=== PATIENT | male | born 1965 | race Caucasian/White ===

== ENCOUNTER → 2017-06-01 07:52 | Outpatient (CLI) | payer BC, SELFPAY ==
--- NOTE | 2017-06-01 08:01 | US_ITS ---
ULTRASOUND ABDOMEN LIMITED: HISTORY: Right upper quadrant pain ITS.REASON: RUQ PAIN ORDERING PHYSICIAN: Jonn Torres MD PATIENT AGE: 52 years COMPARISON: None FINDINGS: PANCREAS: Unremarkable. No obvious mass or abnormal fluid collection. No ductal dilatation LIVER: No focal liver lesions demonstrated. Homogeneous echogenicity. No intrahepatic biliary ductal dilatation evident RIGHT KIDNEY: Unremarkable. Normal size and echogenicity. No hydronephrosis GALLBLADDER: No gallstones, gallbladder wall thickening, pericholecystic fluid, or biliary dilatation. IMPRESSION: Negative gallbladder/right upper quadrant ultrasound
== END ==
PROVIDERS: PCP Emergency Medicine; Visit Provider Emergency Medicine
DX: R10.11 Right upper quadrant pain (principal)
CPT/HCPCS: 76705

== ENCOUNTER → 2017-07-16 08:42 | Outpatient (POV) | payer BC, SELFPAY ==
[2017-07-16 10:08] LABS: Basophils % 0.3 % (0.1-2.0); Eosinophils # 0.1 K/mm3 (0.0-0.4); Eosinophils % 0.9 % (0.1-12.0); Hemoglobin 14.6 g/dL (14.1-18.0); Lymphocytes # 3.4 K/mm3 (0.7-4.5); Lymphocytes % 40.8 K/mm3 (10-50); Mean Corpuscular Hemoglobin 29.1 pg (27.0-31.2); Mean Corpuscular Volume 85.8 fl (80-94); Mean Platelet Volume 7.9 fl (7.4-10.4); Monocytes # 0.6 K/mm3 (0.1-1.0); Monocytes % 7.1 % (1.7-9.3); Neutrophils # 4.2 K/mm3 (1.8-7.8); Neutrophils % 50.9 % (37.0-80.0); Platelet Count 257 K/mm3 (142-424); Red Blood Count 5.01 M/mm3 (4.60-6.20); Red Cell Distribution Width 12.8 % (11.5-17.5); White Blood Count 8.3 K/mm3 (4.8-10.8)
[2017-07-16 11:00] LABS: Anion Gap 10.3 mEq/L (5-15); Blood Urea Nitrogen 16 mg/dL (7-18); Carbon Dioxide 28 mmol/L (21.0-32.0); Chloride 105 mmol/L (98-107); Creatinine,Serum 0.95 mg/dL (0.70-1.30); Potassium 4.3 mmoL/L (3.5-5.1); Sodium 139 mmol/L (136-145)
[2017-07-16 11:01] LABS: Alanine Aminotransferase 56 U/L (12-78); Albumin Level 3.9 gm/dL (3.4-5.0); Albumin/Globulin Ratio 1.2 (1.1-1.8); Alkaline Phosphatase 74 U/L (46-116); Amylase 51 U/L (25-125); Aspartate Amino Transferase 40 U/L (15-37); Bilirubin,Total 0.5 mg/dL (0.2-1.0); Calcium 8.5 mg/dL (8.5-10.1); Estimated Glomerular Filt Rate 83 ml/min (>60); GFR (African American) 100 ML/MIN (>60); Globulin 3.3 gm/dl (1.3-3.2); Glucose 97 mg/dL (74-106); Lipase 186 u/L (73-393); Total Protein,Serum 7.2 gm/dL (6.4-8.2)
== END ==
PROVIDERS: PCP Emergency Medicine; Visit Provider Nurse Practitioner Acute Care
DX: R10.13 Epigastric pain (principal)
CPT/HCPCS: 36415; 80053; 82150; 83690; 85025

== ENCOUNTER → 2017-07-26 08:29 | Outpatient (CLI) | payer BC, SELFPAY ==
[2017-07-26 09:26] LABS: INR 0.96 (0.9-1.1); Prothrombin Time 10.4 seconds (9.4-11.8)
[2017-07-26 09:44] LABS: Hemoglobin A1C 5.5 % (0.0-7.0)
[2017-07-26 09:49] LABS: Chol/HDL Ratio 4.2 (1-3.5); Cholesterol 178 mg/dL (140-200); Ferritin 268 ng/mL (8-388); HDL Cholesterol 42 mg/dL (27-67); LDL Cholesterol 106 mg/dL (0-130); Triglycerides 149 mg/dL (30-200); VLDL Cholesterol 30 mg/dL (0-40)
[2017-07-27 09:17] LABS: Iron 91 ug/dL (38-169); UIBC 197 ug/dL (111-343)
[2017-07-27 10:14] LABS: Hep A Ab, IgM Negative (Negative); Hep B Core Ab, Total Negative (Negative); Hepatitis B Core Antibody IgM Negative (Negative); Hepatitis B Surface Antigen Negative (Negative)
[2017-07-27 11:40] LABS: Hep A Ab, Total Negative (Negative); Hep B Surface Ab, Qual Non Reactive (.); Hepatitis C Antibody 0.1 s/co ratio (0.0-0.9); Iron Saturation 32 % (15-55)
[2017-07-27 17:45] LABS: Actin (Smooth Muscle) Antibody 18 Units (0-19); Angiotensin Converting Enzyme 42 U/L (14-82); Deamidated Gliadin Abs, IgA 2 units (0-19); Deamidated Gliadin Abs, IgG 2 units (0-19); Endomysial IgA Antibody Negative (Negative); Liver-Kidney Microsomal Ab <1.0 Units (0.0-20.0); Mitochondrial (M2) Antibody <20.0 Units (0.0-20.0); Tissue Transglutaminase IgA Ab <2 U/mL (0-3); Tissue Transglutaminase IgG Ab <2 U/mL (0-5)
[2017-07-27 18:10] LABS: Alpha-1-Antitrypsin 124 mg/dL (90-200); Immunoglobulin A, Qn 223 mg/dL (90-386); Immunoglobulin G, Qn 1268 mg/dL (700-1600); Immunoglobulin M, Qn 113 mg/dL (20-172)
[2017-07-31 06:22] LABS: ALT (SGPT) P5P 46 IU/L (0-55); Alpha 2-Macroglobulins, Qn 140 mg/dL (110-276); Apolipoprotein A-1 153 mg/dL (101-178); Bilirubin, Total 0.4 mg/dL (0.0-1.2); Fibrosis Score 0.19 (0.00-0.21); GGT 124 IU/L (0-65); Haptoglobin 119 mg/dL (34-200); Necroinflammat Activity Grade A0-A1 (.); Necroinflammat Activity Score 0.23 (0.00-0.17)
[2017-08-03 19:09] LABS: Antinuclear Antibodies, IFA Positive (.)
== END ==
PROVIDERS: Visit Provider Nurse Practitioner Acute Care
DX: R10.10 Upper abdominal pain, unspecified (principal); R74.8 Abnormal levels of other serum enzymes
CPT/HCPCS: 36415; 80061; 80074; 82104; 82164; 82728; 82784; 83036; 83516; 83550; 85610; 86038; 86255; 86256; 86376; 86704; 86706; 86708

== ENCOUNTER → 2017-07-30 09:54 | Outpatient (CLI) | payer BC, SELFPAY ==
--- NOTE | 2017-07-30 10:01 | NM_ITS ---
NM hepatobiliary w pharm HISTORY: ITS.REASON: ABDOMINAL PAIN ORDERING PHYSICIAN: Daria Zhang PATIENT AGE: 52 years COMPARISON: None DOSE: 8.27 MCI TC Choletec Fatty Meal with Ensure FINDINGS: Homogeneous activity is present within the hepatic parenchyma. Activity is present in the gallbladder by 15 minutes. Activity is present in the small bowel by 30 minutes. The gallbladder ejection fraction is calculated to be 23% The patient did not report pain or other symptoms during the fatty meal. IMPRESSION: 1. No evidence of common or cystic duct obstruction. 2. Low gallbladder ejection fraction of 23%
--- NOTE | 2017-07-30 10:43 | HMH.ITSHM ---
ASA MULTIVITAMIN VITAMIN E
== END ==
PROVIDERS: PCP Emergency Medicine; Visit Provider Nurse Practitioner Acute Care
DX: R10.10 Upper abdominal pain, unspecified (principal); R74.8 Abnormal levels of other serum enzymes
CPT/HCPCS: 78227; A9537

== ENCOUNTER → 2020-03-16 13:15 | Outpatient (POV) | payer BC, SELFPAY | PROVIDERS: Visit Provider Dermatology | DX: Z00.00 Encounter for general adult medical examination without abnormal findings (principal) ==

== ENCOUNTER → 2020-04-13 09:42 | Outpatient (POV) | payer BC, SELFPAY | PROVIDERS: Visit Provider Dermatology | DX: Z00.00 Encounter for general adult medical examination without abnormal findings (principal) ==

== ENCOUNTER 2020-07-18 01:50 | Emergency (ER) | payer BC, SELFPAY ==
[2020-07-18 01:59] VITALS: BP 179/98; PULSE 108; RESP 28; TEMP 36.6; O2SAT 92; BMI 25.1
--- NOTE | 2020-07-18 02:15 | ECG_ITS ---
APPROVED REPORT Exam: Resting ECG HR:86 bpm ECG Measurements Heart Rate 86 AXES NM 130 P 78 QRSd 90 QRS 77 QT 358 T 69 QTc 428 Conclusion Normal sinus rhythm Normal ECG Electronically signed by : Jeff Greene, 07/18/2020 07:56:47
--- NOTE | 2020-07-18 02:15 | XR_ITS ---
PROCEDURE: XR CHEST 2V CLINICAL HISTORY: SOA COMPARISON: CR CXR1 CHEST-PORTABLE from 12/08/2013 FINDINGS: Mild emphysematous changes are noted with mild hyperexpansion lung mcpherson and flattening of the hemidiaphragms. There is no infiltrate. The cardiac silhouette is normal and vascularity is normal and there is no pleural fluid. IMPRESSION: Borderline or mild COPD, no acute chest pathology noted Dictated by: Dr. Adal Wray MD 07/18/2020 07:52 Dr. Adal Wray MD in [place] 07/18/2020 07:52
[2020-07-18 02:23] LABS: ABG Base Excess -0.4 mmol/L (-2.4-2.3); ABG HCO3 24.9 mmhg (22.0-26.0); ABG Oxygen Saturation 92 % (90-100); ABG PCO2 43.9 mmhg (35.0-45.0); ABG PH 7.37 mmol/L (7.35-7.45); ABG PO2 63.3 mmhg (80-100); ABG TCO2 26.2 mmhg (23-27); Allen's Test Y; Oxygen R/A %; Source R/R
--- NOTE | 2020-07-18 02:23 | HMH.EDSOB ---
ED Disposition Clinical Impression: Acute exacerbation of chronic obstructive airways disease Disposition: Home, Self-Care Condition on Discharge: Good Instructions: DI for Chronic Obstructive Pulmonary Disease Additional Instructions: fluids and see pcp for follow up Prescriptions: predniSONE [Prednisone 20mg Tab] 20 mg PO BID #10 tab Transmission Status: [id number] Azithromycin [Zithromax 250mg tab] 250 mg PO DIRECTED #6 tab Transmission Status: P[facility] to [facility] Referrals: Jonn Torres MD [Primary Care Provider] - - Critical Care Critical Care Time: No Attestation: On 07/18/20, the high probability of a clinically significant, sudden or life threatening deterioration of the following system(s) required my full and direct attention, intervention and personal management. The time I documented below is in addition to time spent performing reported procedures but includes the following listed in this critical care notation. Medical Decision Making - Medical Records Medical records reviewed: Yes: I reviewed the patient's medical records. - Mahad Inquiry Pt receiving controlled substance: No Vital Signs: 07/18/20 01:59 Temperature 97.9 F Temperature Source Oral Pulse Rate [Right] 108 H Respiratory Rate 28 H Blood Pressure [Right Arm] 179/98 H Blood Pressure Mean [Right Arm] 125 Blood Pressure Source [Right Arm] Automatic Cuff Blood Pressure Position [Right Arm] Sitting 02 Sat by Pulse Oximetry 92 L Oxygen Delivery Method Room Air - Lab Data Lab results reviewed: Yes: I reviewed the patient's lab results. Lab Results 07/18/20 02:21: Specimen Source R/r, O2 % R/a, ABG pH 7.37, ABG pCO2 43.9, ABG pO2 63.3 L, ABG HCO3 24.9, ABG Total CO2 26.2, ABG O2 Saturation 92, ABG Base Excess -0.4, Carlton Test Y 07/18/20 02:25: WBC 10.3, RBC 5.24, Hgb 15.0, Hct 45.5, MCV 86.8, MCH 28.7, MCHC 33.0, RDW 13.5, Plt Count 263, MPV 7.6, Neut % (Auto) 61.5, Lymph % (Auto) 22.4, Vernon % (Auto) 8.5, Eos % (Auto) 6.9, Baso % (Auto) 0.7, Neut # (Auto) 6.3, Lymph # (Auto) 2.3, Vernon # (Auto) 0.9, Eos # (Auto) 0.7 H, Baso # (Auto) 0.1, ESR 5 07/18/20 02:25: Sodium 140, Potassium 4.3, Chloride 104, Carbon Dioxide 30, Anion Gap 10.3, BUN 19, Creatinine 0.90, Estimated Creat Clear 100, Estimated GFR 87, Est GFR ( Amer) 106, Glucose 98, Calcium 9.6, Total Bilirubin 0.5, AST 36, ALT 25, Alkaline Phosphatase 75, Troponin I < 0.01, C-Reactive Protein 1.5, Total Protein 7.7, Albumin 4.5, Globulin 3.2, Albumin/Globulin Ratio 1.4, Procalcitonin 0.038 07/18/20 02:25: SARS-CoV-2 IgG Ab (Rapid) Negative, SARS-CoV-2 IgM Ab (Rapid) Negative Result diagrams: 07/18/20 02:25 07/18/20 02:25 Orders (Tests/Meds): ED MEDICATIONS Generic Name Dose Route Start Last Admin Trade Name Freq PRN Reason Stop Dose Admin Sodium Chloride 1,000 mls @ 999 mls/hr 07/18/20 02:15 07/18/20 02:32 Sod Chlor 0.9% 1000ml Bag IV 07/18/20 03:15 999 mls/hr .Q1H1M CARISSA Administration Azithromycin 500 mg/ Sodium 250 mls @ 250 mls/hr 07/18/20 04:00 07/18/20 03:52 Chloride IV 08/01/20 03:59 250 mls/hr Q24H CARISSA Administration Protocol Ceftriaxone Sodium 1 gm/ 50 mls @ 100 mls/hr 07/18/20 04:00 07/18/20 03:52 Sodium Chloride IV 08/01/20 03:59 100 mls/hr Q24H CARISSA Administration Protocol Discontinued Medications Generic Name Dose Route Start Last Admin Trade Name Freq PRN Reason Stop Dose Admin Albuterol/Ipratropium 3 ml 07/18/20 02:46 07/18/20 02:49 Albuterol/Ipratropium 3 Ml Neb IH 07/18/20 02:47 3 ml ONCE ONE Administration Albuterol/Ipratropium 2 puff 07/18/20 04:54 Combivent 20mcg/100mcg Respimat Inhaler IH 07/18/20 04:55 ONCE ONE Dexamethasone Sodium Phosphate 10 mg 07/18/20 02:15 07/18/20 02:32 Dexamethasone 4mg/Ml 1ml Vial IV 07/18/20 02:16 10 mg ONCE ONE Administration Iopamidol 70 ml 07/18/20 03:22 07/18/20 03:25 Io
[2020-07-18 02:41] LABS: Basophils # 0.1 K/mm3 (0-0.2); Basophils % 0.7 % (0.1-2.0); Eosinophils # 0.7 K/mm3 (0.0-0.4); Eosinophils % 6.9 % (0.1-12.0); Hematocrit 45.5 % (42.0-52.0); Lymphocytes # 2.3 K/mm3 (0.7-4.5); Lymphocytes % 22.4 % (10-50); Mean Corpuscular Hemoglobin 28.7 pg (27.0-31.2); Mean Corpuscular Volume 86.8 fl (80-94); Mean Platelet Volume 7.6 fl (7.4-10.4); Monocytes # 0.9 K/mm3 (0.1-1.0); Monocytes % 8.5 % (1.7-9.3); Neutrophils # 6.3 K/mm3 (1.8-7.8); Neutrophils % 61.5 % (37.0-80.0); Platelet Count 263 K/mm3 (142-424); Red Blood Count 5.24 M/mm3 (4.60-6.20); Red Cell Distribution Width 13.5 % (11.5-17.5); White Blood Count 10.3 K/mm3 (4.8-10.8)
--- NOTE | 2020-07-18 02:44 | CT_ITS ---
PROCEDURE: CT ANGIO CHEST CLINCIAL INDICATION: soa Especially while lying down COMPARISON: No exams were available for comparison TECHNIQUE: IV Contrast: 70ML Isovue 370 Axial images obtained with sagittal and coronal reformats. All CT scans at the facility use one or more dose reduction, viz: automated exposure control, ma/kV adjustment per patient size (including targeted exams where dose is matched to indication, i.e. head), or iterative reconstruction technique. FINDINGS: HEART AND MEDIASTINAL STRUCTURES: There is excellent vascular opacification. There is no CT evidence of pulmonary emboli. Cardiac size is normal. There is no pericardial effusion. There is no aortic dissection. LUNGS AND PLEURAL SPACES: There is mild hyperexpansion lung mcpherson. There is no infiltrate and there is no pleural fluid. BONY STRUCTURES: There are mild multilevel degenerate changes of the mid lower thoracic spine. UPPER ABDOMEN: Unremarkable. ADDITIONAL FINDINGS: No other significant abnormalities. IMPRESSION: Mild or borderline COPD, no evidence of pulmonary emboli or pneumonic infiltrate Dictated by: Dr. Adal Wray MD 07/18/2020 07:57 Dr. Adal Wray MD in [place] 07/18/2020 07:57
[2020-07-18 02:48] LABS: Chloride 104 mmol/L (98-107); Potassium 4.3 mmoL/L (3.5-5.1); Sodium 140 mmol/L (136-145)
[2020-07-18 02:50] LABS: Alanine Aminotransferase 25 U/L (12-78); Aspartate Amino Transferase 36 U/L (17-59); Blood Urea Nitrogen 19 mg/dl (9-20); Creatinine Clearance Estimated 100 mL/min (50-200); Estimated Glomerular Filt Rate 87 ml/min (>60); GFR (African American) 106 ML/MIN (>60)
[2020-07-18 02:51] LABS: Albumin Level 4.5 g/dl (3.5-5.0); Albumin/Globulin Ratio 1.4 (1.1-1.8); Alkaline Phosphatase 75 U/L (38-126); Anion Gap 10.3 mEq/L (5-15); Bilirubin,Total 0.5 mg/dl (0.2-1.3); Calcium 9.6 mg/dl (8.4-10.2); Carbon Dioxide 30 mmol/L (22.0-30.0); Globulin 3.2 g/dL (1.3-3.2); Glucose 98 mg/dl (74-100); Total Protein,Serum 7.7 g/dl (6.3-8.2)
[2020-07-18 02:56] LABS: C-Reactive Protein 1.5 mg/L (0-4)
[2020-07-18 03:01] LABS: Coronavirus 19 IgG Antibody Negative (Negative); Coronavirus 19 IgM Antibody Negative (Negative)
[2020-07-18 03:10] LABS: Erythrocyte Sedimentation Rate 5 mm/hr (0-20); Procalcitonin 0.038 ng/mL (0.0-2.0)
[2020-07-18 03:13] LABS: Troponin I < 0.01 ng/ml (0.00-0.034)
--- NOTE | 2020-07-18 05:14 | PC.NURSE ---
dental laboratory technician apprentice at bedside and instructed pt on proper use of the inhaler
[2020-07-18 05:15] VITALS: BP 156/74; PULSE 86; RESP 16; TEMP 36.6; O2SAT 97
== END 2020-07-18 05:19 | disposition home or self-care (01) ==
PROVIDERS: Emergency Provider Emergency Medicine; PCP Emergency Medicine
DX: J44.1 Chronic obstructive pulmonary disease with (acute) exacerbation (principal); Z20.822 Contact with and (suspected) exposure to COVID-19; F17.210 Nicotine dependence, cigarettes, uncomplicated
CPT/HCPCS: 71046; 71275; 80053; 82803; 84145; 84484; 85025; 85651; 86140; 86328; 93005; 96365; 96367; 96375; 99283; J0456; Q9967; U0003

== ENCOUNTER → 2020-12-06 15:09 | Outpatient (CLI) | payer OTHER, SELFPAY ==
--- NOTE | 2020-12-06 15:09 | CT_ITS ---
PROCEDURE: CT LUNG SCREENING CLINICAL INDICATION: lung cancer screening Current smoker 40 pack year smoking history COMPARISON: CT CT ANGIO CHEST from 07/18/2020 TECHNIQUE: The exam was performed on a GE Light Speed [address] scanner using 2.90 mGy CTDI. A low dose helical CT CHEST was performed on a multi-detector scanner. All CT scans at the facility use one or more dose reduction, viz: automated exposure control, ma/kV adjustment per patient size (including targeted exams where dose is matched to indication, i.e. head), or iterative reconstruction technique. The LDCT was performed in a facility that meets the criteria for the screening program. Data regarding this exam was submitted to ACR which is an approved registry. The order for this exam indicates that it came as a result of a lung cancer screening counseling shard decision-making visit that included all the elements required of such a visit including smoking cessation. The radiologist interpreting this exam meets the CMS criteria for the LDCT lung cancer screening program. The exam is reported using the Lung-RADS classification scale and reported to the ACR registry. NOTE: This study was performed for the specific purposes of lung cancer screening and is not an alternative to diagnostic chest CT. RADIATION DOSE: CTDI vol(CT dose Index-volume) = 2.90mG DLP (Dose Length Product) = 110.98 mGcm FINDINGS: COPD with scattered areas of scarring. There are scattered a stable small subpleural opacities. Two benign-appearing left upper lobe nodules image 31 each measuring 3 mm unchanged. OTHER FINDINGS: Mildly prominent mediastinal lymph nodes are stable. Coronary artery calcification noted. IMPRESSION: Lung-RADS Category 2 Benign Appearance or Behavior Follow-up: Continue annual screening with LDCT in 12 months Dictated by: Carlton Mccoy MD 12/07/2020 09:19 Carlton Mccoy MD in [place] 12/07/2020 09:19
== END ==
LOC: RAD 15:09
PROVIDERS: PCP Emergency Medicine; Visit Provider Physician Assistant
DX: Z87.891 Personal history of nicotine dependence (principal); Z12.2 Encounter for screening for malignant neoplasm of respiratory organs
CPT/HCPCS: 71271

== ENCOUNTER 2022-07-10 08:52 | Emergency (ER) | payer OTHER, SELFPAY ==
[2022-07-10] VITALS (7 sets, daily range): BP systolic 116–144; BP diastolic 81–95; PULSE 70–91; RESP 16–18; TEMP 36.7–37; O2SAT 94–97; BMI 24.7
--- NOTE | 2022-07-10 08:52 | ECG_ITS ---
APPROVED REPORT Exam: Resting ECG HR:91 bpm ECG Measurements Heart Rate 91 AXES LA 132 P 71 QRSd 89 QRS 71 QT 335 T 56 QTc 384 Conclusion SINUS RHYTHM NONSPECIFIC ST & T-WAVE ABNORMALITY BORDERLINE ECG UNCONFIRMED REPORT Electronically signed by : Jeff Greene MD 07/10/2022 19:47:46
--- NOTE | 2022-07-10 09:03 | XR_ITS ---
FINAL REPORT CLINICAL HISTORY: Midsternal chest pain COMPARISON: 07/18/2020 FINDINGS: 2 views of the chest were obtained . The heart is normal in size. The mediastinum is within normal limits. Right middle lobe atelectasis or scarring is unchanged. There is underlying emphysema. Lungs are otherwise clear. There is no pneumothorax. Osseous structures are unremarkable. IMPRESSION: No acute cardiopulmonary process. Reviewed, Interpreted and Dictated by Cheryl Jarquin MD Transcribed by Ashlee Burt Authenticated and [facility]
[2022-07-10 09:14] LABS: Basophils # 0.1 K/mm3 (0-0.2); Basophils % 0.5 % (0.1-2.0); Eosinophils # 0.3 K/mm3 (0.0-0.4); Eosinophils % 2.3 % (0.1-12.0); Hemoglobin 15.1 g/dL (14.1-18.0); Lymphocytes # 2.4 K/mm3 (0.7-4.5); Lymphocytes % 19.4 % (10-50); Mean Corpuscular HGB Conc 33.6 g/dL (31.8-35.4); Mean Corpuscular Hemoglobin 29.1 pg (27.0-31.2); Mean Corpuscular Volume 86.5 fl (80-94); Mean Platelet Volume 7.5 fl (7.4-10.4); Monocytes # 0.7 K/mm3 (0.1-1.0); Monocytes % 5.7 % (1.7-9.3); Neutrophils % 72.1 % (37.0-80.0); Platelet Count 368 K/mm3 (142-424); Red Blood Count 5.21 M/mm3 (4.60-6.20); Red Cell Distribution Width 13.2 % (11.5-17.5); White Blood Count 12.5 K/mm3 (4.8-10.8)
[2022-07-10 09:24] LABS: Alanine Aminotransferase 29 U/L (12-78); Albumin Level 4.4 g/dl (3.5-5.0); Alkaline Phosphatase 81 U/L (38-126); Anion Gap 10.8 mEq/L (5-15); Aspartate Amino Transferase 36 U/L (17-59); Bilirubin,Direct 0.2 mg/dl (0.0-0.4); Bilirubin,Indirect 0.3 mg/dL (0.0-0.9); Bilirubin,Total 0.5 mg/dl (0.2-1.3); Bilirubin,Unconjugated 0.3 mg/dL (0.0-1.1); Blood Urea Nitrogen 14 mg/dl (9-20); Calcium 8.7 mg/dl (8.4-10.2); Carbon Dioxide 26 mmol/L (22.0-30.0); Chloride 104 mmol/L (98-107); Estimated Glomerular Filt Rate 77 ml/min (>60); GFR (African American) 93 ML/MIN (>60); Glucose 164 mg/dl (74-100); Lipase 80 U/L (23-300); Potassium 3.8 mmoL/L (3.5-5.1); Sodium 137 mmol/L (136-145); Total Protein,Serum 7.3 g/dl (6.3-8.2)
[2022-07-10 09:36] LABS: Troponin I < 0.01 ng/ml (0.00-0.034)
--- NOTE | 2022-07-10 10:47 | PC.NURSE ---
pt asleep on ed stretcher at this time, call light within reach.
--- NOTE | 2022-07-10 10:49 | HMH.EDGENADL ---
Discharge Plan Disposition Patient Disposition: Home, Self-Care Condition: Good Prescriptions Prescriptions: New pantoprazole 40 mg tablet,delayed release (DR/EC) 40 mg PO DAILY Qty: 30 1RF No Action cetirizine [Zyrtec] 10 mg tablet 10 mg PO DAILY PRN (Reason: allergy symptoms) Qty: 90 2RF fluticasone propionate [Flonase Allergy Relief] 50 mcg/actuation spray,suspension 1 spray INTRANASAL DAILY Qty: 16 2RF Rx Instructions: administer into each nostril prednisone 20 mg tablet 20 mg PO BID 5 Days Qty: 10 0RF cyclobenzaprine 10 mg tablet 10 mg PO TID PRN (Reason: muscle spasm) Qty: 60 0RF albuterol sulfate 1.25 mg/3 mL solution for nebulization 1.25 mg INHALATION QID PRN (Reason: shortness of breath or wheezing) Qty: 90 2RF albuterol sulfate [Proventil HFA] 90 mcg/actuation HFA aerosol inhaler 2 puff INHALATION QID PRN (Reason: shortness of breath or wheezing) Qty: 18 2RF Trelegy Ellipta 100-62.5-25 mcg blister with device 1 inh IH DAILY Qty: 180 2RF Referrals Follow up/Referrals: Jonn Torres MD [Primary Care Provider] - See instructions Activity Restrictions/Add. Instructions Additional Instructions/Restrictions: You were evaluated in the emergency department today. At this time, we feel that your symptoms are due to gastritis/peptic ulcer disease. 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 Follow-up with your primary care provider over the next 48 hours. Return to the emergency department for any new or worsening symptoms. Clinical Impressions Clinical Impression: Chest pain due to GERD Chest pain Qualifiers: Chest pain type: unspecified Qualified Code(s): R07.9 - Chest pain, unspecified Stand Alone Forms Stand Alone Forms: Work/School Release Instructions Patient Instructions: DI for Gastroesophageal Reflux Disease (GERD), DI for Atypical Chest Pain Discharge ED Provider: Clarissa Tavarez General Adult HPI General Chief complaint: Chest Pain Stated complaint: CP Time Seen by Provider: 07/10/22 08:56 Mode of Arrival: Ambulatory Source of Information: Patient Limitations: No Limitations Description of Symptoms (Recalled from ER Triage Doc. by RN): Pt c/o epigastric pain 3 days described as 'dull pressure' that moving to [facility] this morning and increased w exertion; denies cardiac h/o and remote choley History of Present Illness HPI narrative: This patient is a 57-year-old male with a history of COPD, prior smoking history, hiatal hernia, and biliary pancreatitis status postcholecystectomy presented to the emergency department for evaluation with concern for several days of epigastric abdominal pain that started to radiate up into his chest today. He states that it gets better with eating, is worse at night and when he lies down, and has been persistent. He states that he also has had nausea and has felt like he needs to go to the bathroom to throw up, but he has not been able to. He denies any fevers, chills, shortness of breath, rashes, swelling, history of blood clots, clotting disorders, or other concerns. Related Data Previous Rx's Medication Instructions Recorded albuterol sulfate 90 mcg/actuation 2 puff inhalation QID PRN 10/06/20 aerosol inhaler (Proventil HFA) shortness of breath or wheezing #18 grams cetirizine 10 mg tablet (Zyrtec) 10 mg PO DAILY PRN allergy 08/26/21 symptoms #90 tabs fluticasone propionate 50 1 spray intranasal DAILY #16 grams 08/26/21 mcg/actuation nasal spray,suspension (Flonase Allergy Relief) albuterol sulfate 1.25 mg/3 mL 1.25 mg (3 mL) inhalation QID PRN 12/02/21 solution for nebulization shortness of breath or wheezing #90 mL fluticasone fur. 100 mcg-umeclid 1 inh inhalation DAILY #180 ea 04/26/22 62.5 mcg-vilant 25 mcg inhalat.powder (Trelegy Ellipta) cyclobenzaprine 10 mg tablet 10 mg PO TID PRN muscle spasm #60 07/05/22 tabs prednisone 20 mg tablet 20 mg PO
[2022-07-10 12:40] LABS: Troponin I < 0.01 ng/ml (0.00-0.034)
== END 2022-07-10 12:59 | disposition home or self-care (01) ==
PROVIDERS: Emergency Provider Emergency Medicine; PCP Emergency Medicine
DX: R07.89 Other chest pain (principal); R10.13 Epigastric pain; K21.9 Gastro-esophageal reflux disease without esophagitis; J44.9 Chronic obstructive pulmonary disease, unspecified; K44.9 Diaphragmatic hernia without obstruction or gangrene; Z87.891 Personal history of nicotine dependence
CPT/HCPCS: 71046; 80048; 80076; 83690; 84484; 85025; 93005; 96374; 99285

== ENCOUNTER 2022-07-27 10:36 | Day surgery (SDC) | payer OTHER, SELFPAY ==
[2022-07-12 10:44] VITALS: BMI 24.3
[2022-07-27 10:54] VITALS: BP 143/69; PULSE 75; RESP 18; TEMP 36.4; O2SAT 97
--- NOTE | 2022-07-27 11:36 | P.PN_ITS ---
[facility] Disclaimer: The information contained in this section may have been updated after the patient was seen, as this information can be updated by other users. Medical History COPD (chronic obstructive pulmonary disease) Tobacco dependence Surgical History History of appendectomy History of back surgery History of foot surgery Family History Other Family history of COPD (chronic obstructive pulmonary disease) Social History Smoking Status: Former smoker quit date: 07/12/21 alcohol intake: never counseling provided: provider counseling substance use type: denies use current occupational status: employed Travel in the last 8 weeks: None household members: family housing: house lives independently: Yes marital status: single education level: high school caffeine: Yes special ya needs: No agree to transfusion: No do you feel safe at home: Yes victim of physical abuse: No victim of emotional abuse: No victim of sexual abuse: No would you like helpful sources: No [facility] Anesthesia Checklist Patient Identification Patient Identification: Verbal (Name & ) Structural Data Admitted From: Home Planned Operative Procedure/s: egd Consent for Planned Operative Procedure(s) Verified: Yes Airway Assessment C-Spine Mobility Assessed: Yes TMJ Mobility Assessed: Yes Dentition: Good Dentition Neurological Assessment Level of Consciousness: Awake, Alert and Appropriate Anesthesia Plan Anesthesia Risk discussed: Yes Anesthesia Plan: Verified ASA Class: II Anesthesia Type: MAC
[2022-07-27 11:46] VITALS: O2SAT 97
[2022-07-27 11:54] VITALS: BP 136/68; PULSE 82; RESP 16; TEMP 36.4; O2SAT 91
[2022-07-27 12:04] VITALS: BP 113/68; PULSE 69; RESP 16; O2SAT 95
[2022-07-27 12:14] VITALS: BP 118/71; PULSE 68; RESP 18; O2SAT 96
[2022-07-27 12:24] VITALS: BP 120/84; PULSE 69; RESP 18; O2SAT 96
--- NOTE | 2022-08-10 10:16 | HMH.SCOPE ---
Procedure: Date: 07/27/22 Patient Date of :: 1965 Procedure Performed:: EGD Indications:: GERD, dyspepsia Performing Provider:: Cale Washington MD Referring Provider:: Jonn Torres Sedation:: Propofol Procedure:: The gastroscope was gently passed through the incisoral orifice into the oral cavity and under direct visualization the esophagus was intubated. The endoscope was passed down the esophagus, through the stomach, and into the duodenum. Color, texture, mucosa, and anatomy of the esophagus, stomach, and duodenum were carefully examined with the scope. Findings:: Oropharynx: normal Esophagus: normal, grade A esophagitis EG Junction: intact at 40 cm Cardia: normal Fundus: normal Body: normal Antrum: normal Duodenal bulb: normal Duodenum (second and third portion): normal Grade A esophagitis otherwise normal EGD Recommendations:: Conservative PPI therapy and life style modification Complications:: None Estimated blood obtained (mL): 0
== END 2022-07-27 12:25 | disposition home or self-care (01) ==
PROVIDERS: PCP Emergency Medicine; Visit Provider Internal Medicine Gastroenterology
PROC: 0DJ08ZZ Inspection of Upper Intestinal Tract, Via Natural or Artificial Opening Endoscopic (ICD-10-PCS; CPT 43235; principal; 2022-07-27 12:00)
DX: K21.00 Gastro-esophageal reflux disease with esophagitis, without bleeding (principal); K30 Functional dyspepsia; Z79.899 Other long term (current) drug therapy
CPT/HCPCS: 43235

== ENCOUNTER 2024-05-09 14:02 | Outpatient (CLI) | payer OTHER, SELFPAY ==
[2024-05-09 18:04] LABS: Basophils # 0.1 K/mm3 (0-0.2); Basophils % 0.7 % (0.1-2.0); Eosinophils # 0.2 K/mm3 (0.0-0.4); Eosinophils % 3.4 % (0.1-12.0); Hematocrit 46.2 % (42.0-52.0); Hemoglobin 15.9 g/dL (14.1-18.0); Lymphocytes # 1.9 K/mm3 (0.7-4.5); Lymphocytes % 27.5 % (10-50); Mean Corpuscular HGB Conc 34.5 g/dL (31.8-35.4); Mean Corpuscular Volume 86.9 fl (80-94); Mean Platelet Volume 7.7 fl (7.4-10.4); Monocytes # 0.5 K/mm3 (0.1-1.0); Monocytes % 7.7 % (1.7-9.3); Neutrophils # 4.3 K/mm3 (1.8-7.8); Neutrophils % 60.7 % (37.0-80.0); Platelet Count 335 K/mm3 (142-424); Red Blood Count 5.31 M/mm3 (4.60-6.20); Red Cell Distribution Width 13.5 % (11.5-17.5); White Blood Count 7.1 K/mm3 (4.8-10.8)
[2024-05-09 18:45] LABS: Albumin Level 4.4 g/dl (3.5-5.0); Chloride 105 mmol/L (98-107); Potassium 4.3 mmoL/L (3.5-5.1); Sodium 139 mmol/L (136-145)
[2024-05-09 18:47] LABS: Alanine Aminotransferase 73 U/L (12-78); Blood Urea Nitrogen 14 mg/dl (9-20); Estimated Glomerular Filt Rate 76 ml/min (>60); GFR (African American) 92 ML/MIN (>60)
[2024-05-09 18:48] LABS: Albumin/Globulin Ratio 1.8 (1.1-1.8); Alkaline Phosphatase 92 U/L (38-126); Anion Gap 10.3 mEq/L (5-15); Aspartate Amino Transferase 49 U/L (17-59); Bilirubin,Total 0.8 mg/dl (0.2-1.3); Calcium 8.9 mg/dl (8.4-10.2); Carbon Dioxide 28 mmol/L (22.0-30.0); Chol/HDL Ratio 4.6 (1-3.5); Cholesterol 161 mg/dl (140-200); Globulin 2.5 g/dL (1.3-3.2); Glucose 98 mg/dl (74-100); HDL Cholesterol 35 mg/dl (40-60); Total Protein,Serum 6.9 g/dl (6.3-8.2); Triglycerides 224 mg/dl (30-150); VLDL Cholesterol 45 mg/dL (0-40)
[2024-05-09 18:59] LABS: Direct LDL Cholesterol 94.59 mg/dL (100-129)
[2024-05-09 19:18] LABS: Thyroid Stimulating Hormone 1.33 uIU/mL (0.465-4.68)
[2024-05-09 21:39] LABS: Prostate Specific Ag Screen 3.1 ng/ml (0.0-4.0)
[2024-05-09 23:25] LABS: 25-OH Vitamin D, Total 37.8 ng/mL (30-100)
== END 2024-05-09 23:59 | disposition home or self-care (01) ==
LOC: LAB.DROPOF 05-10 09:19
PROVIDERS: PCP Family Medicine; Visit Provider Family Medicine
DX: J44.9 Chronic obstructive pulmonary disease, unspecified (principal); F41.9 Anxiety disorder, unspecified; Z76.89 Persons encountering health services in other specified circumstances
CPT/HCPCS: 80050; 80053; 80061; 82306; 84443; 85025; G0103